=== PATIENT | female | born 1970 | race Caucasian/White ===

== ENCOUNTER 2017-10-06 12:16 | Emergency (ER) | payer OTHER ==
[~2017-10-06] VITALS: Ht 170.1 cm; Wt 56.7 kg
[~2017-10-06 12:16] MED LIST: ATIVAN1 MG PO
[2017-10-06 12:25] VITALS: BP 126/86
[2017-10-06] MEDS ORDERED: PREDNISONE10 MG PO (12:29)
== END 2017-10-06 13:46 | disposition home or self-care (01) ==
LOC: ED 12:16
DX: M77.9 Enthesopathy, unspecified (principal); R03.0 Elevated blood-pressure reading, without diagnosis of hypertension; F17.200 Nicotine dependence, unspecified, uncomplicated

== ENCOUNTER 2018-05-05 23:12 | Emergency (ER) | payer SELFPAY ==
[~2018-05-05] VITALS: Ht 170.1 cm; Wt 56.7 kg
[~2018-05-05 23:12] MED LIST changes: +PREDNISONE10 MG PO
[2018-05-05 23:13] VITALS: BP 17/94
[2018-05-06] MEDS ORDERED: DOXYCYCLINE100 M3 PO (00:21)
== END 2018-05-06 00:37 | disposition home or self-care (01) ==
LOC: ED 23:12
DX: Z20.2 Contact with and (suspected) exposure to infections with a predominantly sexual mode of transmission (principal); B37.9 Candidiasis, unspecified

== ENCOUNTER 2021-06-08 20:22 | Emergency (ER) | payer SELFPAY ==
[~2021-06-08] VITALS: Ht 170.1 cm; Wt 61.2 kg
[~2021-06-08 20:22] MED LIST changes: +DOXYCYCLINE100 M3 PO
[2021-06-08 20:32] VITALS: BP 181/101
[2021-06-08 21:06] LABS: BASO # 0.1 10*3/uL (0.0-0.1); BASO % 1.5 % (0.0-1.0); EOS # 0.2 10*3/uL (0.0-0.4); EOS % 2.2 % (1.0-4.0); HEMATOCRIT 46.4 % (37.0-47.0); LYMPH # 2.3 10*3/uL (1.3-4.4); LYMPH % 27.4 % (27.0-41.0); MEAN CELL VOLUME 84.5 fl (81.0-99.0); MEAN CORPUSCULAR HGB 25.9 pg (27.0-31.0); MEAN CORPUSCULAR HGB CONC 30.6 g/dl (33.0-37.0); MEAN PLATELET VOLUME 9.5 fl (9.6-12.3); MONO # 0.4 10*3/uL (0.1-1.0); MONO % 4.8 % (3.0-9.0); NEUT # 5.3 10*3/uL (2.3-7.9); NEUT % 63.7 % (47.0-73.0); PLATELET COUNT AUTOMATED 298 10*3/uL (130-400); RED BLOOD COUNT 5.49 10*6/uL (4.10-5.10); WHITE BLOOD COUNT 8.3 10*3/uL (4.8-10.8)
[2021-06-08 21:06] LABS: BILIRUBIN Negative (Negative); BLOOD 1+ (Negative); CLARITY Clear (Clear); COLOR Yellow (Yellow); GLUCOSE Negative (Negative); KETONE Negative (Negative); LEUKO ESTERASE 2+ (Negative); NITRITE Negative (Negative); PH 5.5 (4.5-8.0); SPECIFIC GRAVITY <= 1.005 (1.001-1.030); UROBILINOGEN 0.2 E.U./dl (0.0-1.0)
[2021-06-08 21:18] LABS: BACTERIA 1+
[2021-06-08 21:24] LABS: ALBUMIN 3.7 gm/dl (3.1-4.5); ALKALINE PHOSPHATASE 74 U/L (45-117); BUN 6 mg/dl (7-24); CHLORIDE 105 mmol/L (98-107); CREATININE 0.87 mg/dL (0.55-1.02); LIPASE 119 U/L (73-393); POTASSIUM 3.4 mmol/L (3.5-5.1); SGOT/AST 12 IU/L (3-35); SGPT/ALT 15 U/L (12-78); SODIUM 136 mmol/L (136-145); TOTAL PROTEIN 7.2 gm/dL (6.4-8.2)
[2021-06-08] MEDS ORDERED: CIPRO500 MG PO (21:55)
== END 2021-06-08 22:15 | disposition home or self-care (01) ==
LOC: ED 20:22
PROVIDERS: Internal Medicine
DX: N39.0 Urinary tract infection, site not specified (principal); A59.9 Trichomoniasis, unspecified

== ENCOUNTER 2022-03-11 21:20 | Emergency (ER) | payer SELFPAY ==
[~2022-03-11] VITALS: Ht 170.1 cm; Wt 59.0 kg
[~2022-03-11 21:20] MED LIST changes: +CIPRO500 MG PO
[2022-03-11] MEDS ORDERED: PROVENTIL HFA6.7 GM INH (22:57)
[2022-03-11] MEDS ORDERED: PREDNISONE20 M1 PO (22:57)
[2022-03-11 23:13] VITALS: BP 141/88
== END 2022-03-11 23:12 | disposition home or self-care (01) ==
LOC: ED 21:20
DX: J44.1 Chronic obstructive pulmonary disease with (acute) exacerbation (principal)

== ENCOUNTER 2024-12-31 17:01 | Emergency (ER) | payer OTHER ==
[~2024-12-31] VITALS: Ht 170.1 cm; Wt 65.8 kg
[~2024-12-31 17:01] MED LIST changes: +PREDNISONE20 M1 PO; +PROVENTIL HFA6.7 GM INH
[2024-12-31] MEDS ORDERED: MORPHINE Sulfate 2 MG/ML SYR IV ONE (17:30)
[2024-12-31] MEDS ORDERED: Ondansetron Hydrochloride 4 MG/2 ML VIAL IV ONE (17:35)
[2024-12-31 17:37] VITALS: BP 136/96
[2024-12-31 17:43] LABS: BASO # 0.1 10*3/uL (0.0-0.1); BASO % 0.8 % (0.0-1.0); EOS # 0.2 10*3/uL (0.0-0.4); EOS % 3.5 % (1.0-4.0); HEMATOCRIT 44.4 % (37.0-47.0); MEAN CELL VOLUME 83.1 fl (81.0-99.0); MEAN CORPUSCULAR HGB 25.5 pg (27.0-31.0); MEAN CORPUSCULAR HGB CONC 30.6 g/dl (33.0-37.0); MEAN PLATELET VOLUME 9.4 fl (9.6-12.3); MONO # 0.5 10*3/uL (0.1-1.0); MONO % 6.8 % (3.0-9.0); NEUT # 3.5 10*3/uL (2.3-7.9); NEUT % 52.1 % (47.0-73.0); PLATELET COUNT AUTOMATED 278 10*3/uL (130-400); RED BLOOD COUNT 5.34 10*6/uL (4.10-5.10); RED CELL DISTRI WIDTH 13.4 % (0-14.5); WHITE BLOOD COUNT 6.6 10*3/uL (4.8-10.8)
[2024-12-31 18:06] LABS: ALKALINE PHOSPHATASE 70 U/L (46-116); BUN 13 mg/dl (9-23); CHLORIDE 104 mmol/L (98-107); POTASSIUM 4.2 mmol/L (3.4-5.1); SGPT/ALT 16 U/L (5-49); TOTAL PROTEIN 7.3 gm/dL (6.0-8.0)
[2024-12-31] MEDS ORDERED: PREDNISONE20 M1 PO (19:11)
[2024-12-31] MEDS ORDERED: AVPAK AZITHROM250 M1 PO (19:11)
[2024-12-31] MEDS ORDERED: methylPREDNISolone sod succ 125 MG VIAL IV ONE (19:15)
[2024-12-31] MEDS ORDERED: AZITHROMYCIN 250 MG TAB PO ONE (19:15)
== END 2024-12-31 19:21 | disposition home or self-care (01) ==
LOC: ED 17:01
PROVIDERS: Nurse Practitioner Family
DX: J44.9 Chronic obstructive pulmonary disease, unspecified (principal); R07.1 Chest pain on breathing

== ENCOUNTER 2025-07-03 14:20 | Emergency (ER) | payer OTHER ==
[~2025-07-03] VITALS: Ht 170.1 cm; Wt 59.0 kg
[~2025-07-03 14:20] MED LIST changes: +AVPAK AZITHROM250 M1 PO
[2025-07-03 14:35] VITALS: BP 169/97
[2025-07-03 15:15] LABS: BASO # 0.1 10*3/uL (0.0-0.1); BASO % 0.9 % (0.0-1.0); EOS # 0.4 10*3/uL (0.0-0.4); EOS % 3.9 % (1.0-4.0); MEAN CELL VOLUME 85.8 fl (81.0-99.0); MEAN CORPUSCULAR HGB 26.1 pg (27.0-31.0); MEAN PLATELET VOLUME 9.8 fl (9.6-12.3); MONO # 0.8 10*3/uL (0.1-1.0); MONO % 8.2 % (3.0-9.0); NEUT # 6.4 10*3/uL (2.3-7.9); NEUT % 68.1 % (47.0-73.0); NUCLEATED RED BLOOD CELL 0.0 % (0.0-0.0); NUCLEATED RED BLOOD CELL 0.0 10*3/uL (0.0-0.0); PLATELET COUNT AUTOMATED 307 10*3/uL (130-400); RED CELL DISTRI WIDTH 13.3 % (0-14.5)
[2025-07-03 15:37] LABS: BUN 7 mg/dl (9-23); SGPT/ALT 15 U/L (5-49)
[2025-07-03] MEDS ORDERED: PREDNISONE20 M1 PO (16:06)
[2025-07-03] MEDS ORDERED: AMOX-CLAV 875-1 EACH PO (16:06)
[2025-07-03] MEDS ORDERED: Amoxicillin/Clavulanate Pota 875 MG TAB PO ONE (16:10)
== END 2025-07-03 16:15 | disposition home or self-care (01) ==
LOC: ED 14:20
PROVIDERS: Nurse Practitioner Family
DX: K04.7 Periapical abscess without sinus (principal)

== ENCOUNTER 2025-09-05 13:42 | Emergency (ER) | payer OTHER ==
[~2025-09-05] VITALS: Ht 170.1 cm; Wt 61.2 kg
[~2025-09-05 13:42] MED LIST changes: +AMOX-CLAV 875-1 EACH PO
[2025-09-05 13:48] VITALS: BP 184/90
[2025-09-05 14:52] LABS: BASO # 0.1 10*3/uL (0.0-0.1); BASO % 1.0 % (0.0-1.0); EOS # 0.4 10*3/uL (0.0-0.4); EOS % 3.9 % (1.0-4.0); MEAN CELL VOLUME 86.0 fl (81.0-99.0); MEAN CORPUSCULAR HGB 26.0 pg (27.0-31.0); MEAN PLATELET VOLUME 9.4 fl (9.6-12.3); MONO # 0.6 10*3/uL (0.1-1.0); MONO % 7.1 % (3.0-9.0); NEUT # 6.0 10*3/uL (2.3-7.9); NEUT % 67.7 % (47.0-73.0); NUCLEATED RED BLOOD CELL 0.0 % (0.0-0.0); NUCLEATED RED BLOOD CELL 0.0 10*3/uL (0.0-0.0); PLATELET COUNT AUTOMATED 325 10*3/uL (130-400); RED CELL DISTRI WIDTH 14.2 % (0-14.5)
[2025-09-05 15:10] LABS: BUN < 5 mg/dl (9-23)
[2025-09-05] MEDS ORDERED: MEDROL DOSEPAK4 MG PO (15:38)
[2025-09-05] MEDS ORDERED: BROMFED DM COU118 M2 PO (15:38)
[2025-09-05] MEDS ORDERED: ZITHROMAX250 MG PO (15:38)
== END 2025-09-05 15:46 | disposition home or self-care (01) ==
LOC: ED 13:42
PROVIDERS: Nurse Practitioner Family
DX: J44.0 Chronic obstructive pulmonary disease with (acute) lower respiratory infection (principal); J20.9 Acute bronchitis, unspecified; F17.200 Nicotine dependence, unspecified, uncomplicated; Z88.1 Allergy status to other antibiotic agents; Z79.899 Other long term (current) drug therapy